=== PATIENT | male | born 1985 | race Two or more races ===

== ENCOUNTER 2021-02-09 13:46 | Emergency (ER) | payer BC ==
[~2021-02-09] VITALS: Ht 180.3 cm; Wt 100.0 kg
[2021-02-09 19:38] VITALS: BP 145/108
--- NOTE | 2021-02-09 21:10 | PHYS DOC ---
Past Medical History Past Surgical History: No Surgical History General Adult EDM: Chief Complaint: MECHANICAL FALL HPI: HPI: Patient is a 35-year-old male who presents to the emergency department for coccyx pain that occurred after he slipped on ice and fell onto his bottom last night. Patient rates his pain 10 out of 10. He denies hitting his head or loss of consciousness, wounds, loss of bowel or bladder or saddle anesthesias. Review of Systems: Review of Systems: HENT: See HPI : See HPI Musculoskeletal: See HPI Integument: See HPI Neurologic: See HPI Heart Score: C/O Chest Pain: N/A Risk Factors: Risk Factors: DM, Current or recent (<one month) smoker, HTN, HLP, family history of CAD, obesity. Risk Scores: Score 0 - 3: 2.5% MACE over next 6 weeks - Discharge Home Score 4 - 6: 20.3% MACE over next 6 weeks - Admit for Clinical Observation Score 7 - 10: 72.7% MACE over next 6 weeks - Early Invasive Strategies Current Medications: Current Medications Medications (Trade) Dose Ordered Sig/Jinny Start Time Stop Time Status Last Admin Dose Admin Acetaminophen/ Hydrocodone Bitart (Lortab 5/325) 1 tab 1X ONCE 02/09/21 21:00 02/09/21 21:01 UNV Allergies: Allergies: Allergies Coded Allergies Type Severity Reaction Last Updated Verified No Known Drug Allergies 02/09/21 No Physical Exam: PE: Constitutional: Well developed, well nourished, no acute distress, non-toxic appearance. [] HENT: Normocephalic, atraumatic, bilateral external ears normal, oropharynx moist, no oral exudates, nose normal. [] Eyes: PERRL, EOMI, conjunctiva normal, no discharge. [] Neck: Normal range of motion, no bony spinal tenderness, supple, no step-offs or deformities, no stridor. [] Cardiovascular: Normal peripheral perfusion Lungs & Thorax: Normal work of breathing, no tachypnea Abdomen: Bowel sounds normal, soft, no tenderness, no masses, no pulsatile masses. [] Skin: Warm, dry, no erythema, no rash. [] Back: No bony spinal tenderness, coccyx pain with palpation, normal range of motion Extremities: No tenderness, no cyanosis, no clubbing, ROM intact, no edema. [] Neurologic: Alert and oriented X 3, normal motor function, normal sensory function, no focal deficits noted. [] Psychologic: Anxious appearing Current Patient Data: Vital Signs: Vital Signs Date Time Temp Pulse Resp B/P (MAP) Pulse Ox O2 Delivery O2 Flow Rate FiO2 02/09/21 19:38 98.9 80 20 145/108 (120) 100 Room Air 98.9 EKG: EKG: [] Radiology/Procedures: Radiology/Procedures: [] Course & Med Decision Making: Course & Med Decision Making Pertinent Labs and Imaging studies reviewed. (See chart for details) [] Patient presents to the emergency department for coccyx pain after slipping on ice and falling onto his bottom yesterday. Patient denies any head injury or loss of consciousness, loss of bowel or bladder, saddle anesthesias. Patient states that he has really good insurance and has read all of the pamphlets while out in the emergency department and knows that we are "top 10". Patient is requesting a MRI of his coccyx, I have informed patient that we do not perform emergent MRIs for his complaint in the ER. Patient states "well can I have some pain medication, I was told as soon as I got back to her room I can get some pain medication" x-ray performed of patient's coccyx and sacrum which showed no acute findings as read by this [employer] and supervising physician. Patient was treated with pain medication while in the emergency department. Patient is ambulatory with a steady gait. Patient advised to apply ice and take anti- inflammatory medications. I discussed with patient all findings and diagnostic testing as well as the need to follow-up with PCP for further evaluation and treatment or return to the ER if any new or worsening symptoms. Strict return precautions were also discussed at length. Patient voiced understanding and agreement with the plan. Patient is hemodynamically stable at the time of disposition. Dragon Disclaimer: Qustodian Disclaimer: This electronic medical record was generated, in whole or in part, using a voice recognition dictation system. Departure Departure Impression: Primary Impression: Coccyx contusion Qualified Codes: S30.0XXA - Contusion of lower back and pelvis, initial encounter Disposition: HOME / SELF CARE / HOMELESS Condition: GOOD Referrals: NON,STAFF (PCP) Patient Instructions: Back Pain, Adult Additional Instructions: You are seen in the emergency department today for coccyx pain after falling yesterday. Imaging was performed that showed no acute findings. Your pain was treated while in the emergency department. Please take Tylenol and/ibuprofen for your pain at home you can also apply ice. Follow-up with your primary care provider tomorrow regarding your ER visit. Please return to the emergency department if you develop worsening of your pain, loss of bowel or bladder, numbness or tingling in your groin, inability to bear weight or walk any new or worsening concerns. CONSTANZA BEAL APRN Feb 09, 2021 21:10
[2021-02-09] MEDS: HYDROcodone/APAP 5/325MG 1 TAB TABLET PO ONE (21:47)
--- NOTE | 2021-02-09 22:33 | RAD ---
Study: XR SACRUM AND COCCYX 2+VIEWS Indication: Fall. Coccyx pain. Comparison: None. Findings: Within normal limits configuration of the sacrum and coccyx on the lateral view. Limited evaluation o n the AP views due to osseous overlap and bowel gas. The rest of the partially assessed pelvis/hips a re unremarkable. The adequately assessed sacral arcuate lines are continuous. Impression: No radiographic evidence for a sacral or coccygeal fracture. Electronically signed by: SOPHIE AKHTAR MD (02/09/2021 10:30 PM) [facility]
== END 2021-02-09 22:30 | disposition home or self-care (01) ==
LOC: ER 13:46
DX: S30.0XXA Contusion of lower back and pelvis, initial encounter (principal); W00.0XXA Fall on same level due to ice and snow, initial encounter; Y93.89 Activity, other specified; Y92.89 Other specified places as the place of occurrence of the external cause; Y99.8 Other external cause status
CPT/HCPCS: 72220; 99283